=== PATIENT | male | born 1980 | race Caucasian/White ===

== ENCOUNTER → 2017-02-14 | Outpatient (CLI) | payer MEDICAID ==
[~2017-02-14] MED LIST: ATORVASTATIN CA80 MG PO; HUMULIN 70100 UNITS/; KEFLEX 500MG.500 MG PO; LISINOPRIL/HCTZ1 TA3 FT; LISINOPRIL10 MG PO; METFORMIN500 MG PO; NOVOLOG MIX 70/10 ML SC; NOVOLOG MIX SC
--- NOTE | 2017-02-14 15:46 | RADIOLOGY REPORT PS360 ---
[id number] VIEWS HISTORY: LEFT SHOULDER PAIN ORDERING PHYSICIAN: Sonny Angulo MD PATIENT AGE: 36 years COMPARISON: None FINDINGS: No fracture or dislocation. No lytic or blastic change. There is normal mineralization. The joint spaces are well-preserved. No significant degenerative/arthritic changes. No erosive changes evident. IMPRESSION: Negative left shoulder, no acute finding
== END ==
LOC: RAD 12:52
DX: M25.512 Pain in left shoulder (principal)